=== PATIENT | male | born 1990 | race Two or more races ===

== ENCOUNTER 2017-06-04 23:11 | Emergency (ER) | payer SELFPAY ==
[2017-06-04 23:25] VITALS: TEMP 99.1
[2017-06-04] MEDS ORDERED: ACYCLOVIR 400 MG PREPACK#4 BTL TAKEHOME ONE (23:51)
[2017-06-04] MEDS ORDERED: ACYCLOVIR 400 MG TAB PO ONE (23:51)
[2017-06-04] MEDS ORDERED: HYDROCODONE/APAP 5/325 TAB PO ONE (23:52)
[2017-06-04] MEDS ORDERED: HYDROCOD/APAP 5/325 PREPACK#6 BTL TAKEHOME ONE (23:52)
--- NOTE | 2017-06-04 23:55 | EDPHY ---
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 HPI The patient presents with 1 week of right-sided shoulder and chest pain which began slowly and is getting progressively worse. The pain is constant, achy in nature, does not radiate, is not worse with movement. On 2 days ago he noticed a rash in the same area he was having the pain. He has not had any fevers or chills. He has been feeling generally well otherwise.. REVIEW OF SYSTEMS Constitutional: No fever, no chills. Eyes: No discharge. ENT: No sore throat. Cardiovascular: No chest pain, no palpitations. Respiratory: No cough, no shortness of breath. Gastrointestinal: No abdominal pain, no vomiting. Genitourinary: No hematuria. Musculoskeletal: No back pain. Skin: See HPI Neurological: No headache. PMHx: Healthy, no medications Soc Hx: Denies drug and alcohol use PHYSICAL General Appearance: Alert, no distress Eyes: Pupils equal and round no pallor or injection ENT, Mouth: Mucous membranes moist Respiratory: There are no retractions, lungs are clear to auscultation Cardiovascular: Regular rate and rhythm Gastrointestinal: Abdomen is soft and non-tender, no masses, bowel sounds normal Neurological: A&O, moves all extremities Skin: Warm and dry, there is a vesicular rash of the right torso which begins at the midline in the upper thoracic spinal region and continues to his sternum Musculoskeletal: Neck is supple non tender Extremities: symmetrical, full range of motion Psychiatric: Patient is oriented X 3, there is no agitation Source: Patient Exam Limitations: No limitations - Personal History Current Tetanus/Diphtheria Vaccine: No Current Tetanus Diphtheria and Acellular Pertussis (TDAP): No - Medical/Surgical History Hx Asthma: No Hx Chronic Respiratory Disease: No Hx Diabetes: No Hx Cardiac Disease: No Hx Renal Disease: No Hx Cirrhosis: No Hx Alcoholism: No Hx HIV/AIDS: No Hx Splenectomy or Spleen Trauma: No - Social History Smoking Status: Never smoked Constitutional: Initial Vital Signs Temperature (C) 37.3 C 06/04/17 23:16 Heart Rate 80 06/04/17 23:16 Respiratory Rate 18 06/04/17 23:16 Blood Pressure 149/83 H 06/04/17 23:16 O2 Sat (%) 96 06/04/17 23:16 O2 Delivery Mode Room Air Allergies/Adverse Reactions: No Known Allergies Allergy (Unverified 06/04/17 23:16) Home Medications: Medication Instructions Recorded Acyclovir [Zovirax] 800 mg PO 5XD #35 tab 06/04/17 Medical Decision Making Differential Diagnosis: 27-year-old male who presents with right-sided chest and back pain for the last 1 week, with 2 days of rash in a similar distribution. This appears to be shingles. He is immunocompetent based on history. He does not have any evidence of super infection. He will be discharged with acyclovir and [place] as needed for pain. I have given him information for [facility] if he is to develop a post herpetic neuralgia which I have discussed with him. Departure - Departure Disposition: Home, Routine, Self-Care Clinical Impression: Shingles Qualifiers: Herpes zoster complications: without complications Qualified Code(s): B02.9 - Zoster without complications Condition: Good Instructions: Acyclovir (By mouth), Shingles (ED) Additional Instructions: You should take ibuprofen 400 mg every 6 hours as needed for pain. If the pain is more severe you can take the pain pills I have given to you. You should take the acyclovir. If you have finished these medications and the pain still persists, I would like you to follow up with a primary care doctor and I have given you information for this below. Referrals: [facility],. [Clinic] - As per Instructions Prescriptions: Acyclovir [Zovirax] 800 mg PO 5XD #35 tab
[2017-06-05 00:16] VITALS: BP 138/70; PULSE 87; RESP 16; O2SAT 94
== END 2017-06-05 00:17 | disposition home or self-care (01) ==
DX: B02.9 Zoster without complications (principal)